=== PATIENT | female | born 1990 | race Caucasian/White ===

== ENCOUNTER → 2021-02-20 08:08 | Outpatient (CLI) | payer BC, SELFPAY ==
[2021-02-16 07:28] VITALS: BMI 29.0
[2021-02-20 10:34] LABS: Anion Gap 6 (5-15); BUN 9 mg/dL (7-18); BUN/Creat Ratio 13.5 RATIO (10-20); Calcium,Total 8.5 mg/dL (8.5-10.1); Chloride 106 mmol/L (98-107); Cholesterol 168 mg/dL (200); Creatinine, Serum 0.67 mg/dL (0.55-1.02); EST Glomerular Filtration Rate 110 mL/min (>60); Est Glom Filt Rate - Afr Amer 133 mL/min (>60); Glucose 84 mg/dL (74-106); High Density Lipoprotein 56 mg/dL; Potassium 3.8 mmol/L (3.5-5.1); Sodium Level 137 mmol/L (136-145); Triglycerides 139 mg/dL; Very Low Density Lipoprotein 28 mg/dL (5-40)
[2021-02-20 10:36] LABS: Vitamin D,25 Hydroxy 28.4 ng/mL
== END ==
PROVIDERS: Visit Provider Family Medicine
DX: Z00.00 Encounter for general adult medical examination without abnormal findings (principal)
CPT/HCPCS: 36415; 80048; 80061; 82306

== ENCOUNTER 2021-04-24 10:04 | Day surgery (SDC) | payer BC, SELFPAY ==
[2021-02-16 07:28] VITALS: BMI 29.0
--- NOTE | 2021-04-20 15:32 | EKG12_ITS ---
Test Reason : PREOP Blood Pressure : / mmHG Vent. Rate : 057 BPM Atrial Rate : 057 BPM P-R Int : 168 ms QRS Dur : 100 ms QT Int : 442 ms P-R-T Axes : 039 039 034 degrees QTc Int : 430 ms Sinus bradycardia Otherwise normal ECG Confirmed by MARIAH REYES, RK ([id number]), content editor RICHI DYER ([id number]) on 04/21/2021 10:33:42 AM Referred By: Howard Yancey Confirmed By:RK LEMUS MD
[2021-04-20 16:46] LABS: Hematocrit 41.3 % (37-47); Hemoglobin 13.3 g/dL (12.0-15.0); Mean Corp Hgb Conc 32.2 g/dL (32-36); Mean Corpuscular Hgb 28.3 pg (27.0-32.0); Mean Corpuscular Volume 87.9 fL (81-99); Mean Platelet Vol. 11.5 fl (6.2-12.0); Platelet Count 286 K/mm3 (150-450); RBC Distribution Width CV 11.5 % (11.6-14.6); RBC Distribution Width SD 37.2 fl (35.1-43.9)
[2021-04-20 17:29] LABS: Anion Gap 7 (5-15); BUN 6 mg/dL (7-18); BUN/Creat Ratio 10.5 RATIO (10-20); Calcium,Total 8.5 mg/dL (8.5-10.1); Chloride 107 mmol/L (98-107); Creatinine, Serum 0.57 mg/dL (0.55-1.02); EST Glomerular Filtration Rate 132 mL/min (>60); Est Glom Filt Rate - Afr Amer 159 mL/min (>60); Glucose 78 mg/dL (74-106); Potassium 3.4 mmol/L (3.5-5.1); Sodium Level 139 mmol/L (136-145)
[2021-04-24] VITALS (8 sets, daily range): BP systolic 107–139; BP diastolic 61–93; PULSE 67–101; RESP 16; TEMP 36.2–37.2; O2SAT 95–100; BMI 31.6
[2021-04-24 10:33] LABS: Internal QC Validated? YES +Cl - CLEAR BKGD; Pregnancy, Urine Negative Negative
[2021-04-24] MEDS: Lactated Ringers 1,000 ML 100 ML IV (10:50)
[2021-04-24] MEDS: Bupivacaine Mpf 0.5% 30 ML VIAL (11:29)
--- NOTE | 2021-04-24 11:49 | PCM.HP.BLA ---
History and Physical Date of Admission: 04/24/21 Intake Visit Reasons: UPDATE H & P. SURGERY IN APR. Chief Complaint: update H&P for hemorrhoidectomy 04/24 [employer] Equipment Tender Required: No Is patient in pain?: No Allergies poison zulema extract Allergy (Mild, Verified 04/20/21 15:02) Rash CHEAP METALS Allergy (Uncoded 04/17/21 13:40) Rash Medications cholecalciferol (vitamin D3) 25 mcg (1,000 unit) capsule 25 mcg PO DAILY 02/16/21 [History Confirmed 04/20/21] fexofenadine 180 mg tablet 180 mg PO DAILY 02/16/21 [History Confirmed 04/20/21] norgestimate-ethinyl estradiol [Sprintec (28)] 1 tab PO DAILY 04/17/21 [History Confirmed 04/20/21] Is last menstrual period known: No Post menopausal: Yes Patient : No PFSH Medical History Alcohol use Former smoker Hemorrhoids History of episiotomy Migraine headache Severe headache Wears contact lenses Wears glasses Surgical History Hx of colonoscopy Family History Father Heart disease Kidney disease Cancer skin Social History Smoking Status: Former smoker alcohol intake: current alcohol intake frequency: a few times a month HPI HPI HPI: CLARISA ANDRADE, is a 31 F who presents to the office today for an update history and physical. Patient is scheduled for an elective hemorrhoidectomy. She denies recent illnesses or hospitalizations. She denies previous complications/side effects from anesthesia. Patient's previous history per Dr. Yancey: CLARISA ANDRADE, is a 30 F who presents to the office today for surgical consultation regarding bleeding internal/external hemorrhoids. The patient's new primary care physician will be Dr. Jeff Hua. She is a 30-year-old female. She complains of a prolonged history of anal pain bleeding and protruding tissue. I assisted her on January 04, 2014 with a combined upper and lower endoscopy. Lower endoscopy demonstrated significant internal hemorrhoids at that time. Then upper endoscopy was not very remarkable. She is gone on all this time with persistent pain bleeding clots. She increased fiber in her diet. She occasion will take a fiber supplement. She is not on any anticoagulants. Because of the progressive discomfort she presents now for definitive treatment. She states that her father had hemorrhoidal disease. ROS General General: Yes weight change and fatigue; No appetite, colon cancer, breast cancer or weakness HEENT HEENT: No difficulty swallowing, eye injury, eye surgery, swollen glands or hoarseness Endo Endocrine: No thyroid disease, diabetes mellitus, thyroid cancer, Hair loss, heat intolerance or cold intolerance Skin Skin: No rash or changing moles Breast Breast: No left breast lump, right breast lump, nipple discharge, breast pain, abnormal mammogram, abnormal US or breast enlargement Musc Musculoskeletal: No back problems, arthritis, rheumatoid arthritis, gout or joint pain Cardio Cardiovascular: No murmur, pacemaker, heart disease, atrial fibrillation, high blood pressure, heart attack, heart stent, palpitations, shortness of breat with exertion or chest pain Psych Psychiatric: Yes anxiety; No depression or hearing voices Resp Respiratory: No shortness of breath, No sleep apnea, No cough, No COPD, No asthma, No emphysema and No wheezing Gastro Gastrointestinal: No abdominal pain, No nausea or vomiting, No diarrhea, No constipation, No blood in stool, No acid reflux, Yes hemorrhoids, No ulcers, No gallbladder problem and No black,tarry stools Archie Hematologic: No blood thinners, No blood disorders, No bleeding, No anemia and No blood clots Neuro Neurologic: No system reviewed and no additional complaints, except as documented, No as per HPI, No abnormal gait, No abnormal hearing, No abnormal movements, No abnormal speech, No behavioral changes, No burning sensations, No confusion, No convulsions, No disequilibrium, No dizziness, No localized weakness, No frequent falls, No headache(s), No lack of coordination, No loss of vision, No memory loss, No numbness, No other visual disturbances, No radicular pain, No restless legs, No sensory deficit, No syncope, No tingling, No tremor(s), No weakness and No other Exam Const General: cooperative, healthy appearing, comfortable and no acute distress [facility] Head: normal to inspection Eyes General: appearance normal, both eyes and all related structures Neck Neck: normal visual inspection Neck mass: No Resp Effort & Inspection: normal respiratory effort Auscultation: clear to auscultation bilaterally Cardio Rate: regular rate Rhythm: regular rhythm GI Inspection: normal to inspection Palpation: soft Auscultation: normal bowel sounds Rectal Exam: hemorrhoids Skin General: no rashes or lesions noted Neuro General: no focal motor deficits and CN's II-XI intact bilaterally Extrem General: normal to inspection Psych Appearance: grossly normal Affect: normal affect COVID (Procedure Consent) Procedure Criteria Procedure Criteria: Yes Elective The surgeon/proceduralist and patient have discussed in detail the risk of exposure to and/or potential harm posed by the COVID-19 virus with having a surgery/procedure at this time versus the risk of delaying the surgery/procedure. It is not possible to know either the risk of delaying the surgery or procedure or chance of getting an infection with perfect accuracy, but a joint decision was made between the patient and the surgeon/proceduralist to proceed at this time with the scheduled surgery/procedure as indicated on the consent form. Assessment and Plan Assessment and Plan (1) Hemorrhoids: Status: Acute Qualifiers: Hemorrhoid type: fourth degree Qualified Code(s): K64.3 - Fourth degree hemorrhoids Plan - Gretchen MORALES PAHeenaC: Dr. Yancey will plan to perform a hemorrhoidectomy. Procedure details, risks and benefits have been reviewed. Patient has had the opportunity to ask and have questions answered. Patient verbally understands and agrees with the plan. Coding Level of Care Code No Charge Diagnoses Hemorrhoids K64.3 Hemorrhoid type: fourth degree I have re-examined the patient. There are no clinical changes since date of exam. Howard Yancey M.D., F.A.C.S.
--- NOTE | 2021-04-24 12:00 | HEM_PTH ---
PATIENT: CLARISA ANDRADE LOC: [facility] – [place] U#:[id number] AGE/SX: 31/F ROOM: RE04/24/[address]: Dr. Howard Yancey MD : 1990 BED: DIS: 04/24/2021 SPEC #: [id number] RECD: 04/24/21 15:40 STATUS: ELVIRA REID #: [id number] NOHEMY: 04/24/21 12:[address]: Howard Yancey DEPT: SURGICAL PATHOLOGY RECD BY: Maren Woodward ENTERED: 04/25/21 16:33 SP TYPE: HEMORRHOID OTHR DR: No Primary Care Phys Tissues: HEMORRHOIDS Procedures: Surgery Specimen Level III HEADER OPERATION: Hemorrhoidectomy PRE-OP DIAGNOSIS: Hemorrhoids TISSUE SUBMITTED: Hemorrhoid tissue MICROSCOPIC DIAGNOSIS Hemorrhoid tissue, hemorrhoidectomy: Submucosal vascular ectasia and thrombosis consistent with hemorrhoids. AM:kath 04/28/2021 MICROSCOPIC DESCRIPTION Slides are reviewed. GROSS DESCRIPTION Received in fixative is one container labeled with the patient's name and designated hemorrhoid tissue. The specimen consists of five irregular fragments of arango mucosa with underlying submucosa that in aggregate measure 5 x 4.5 x 1.5 cm. Wax Ball Knock Out Worker sections are submitted in one cassette. / AM:kath 04/27/21 TC:5 [facility]: [id number]
[2021-04-24] MEDS: Cefotetan 2 GM in 0.9% NS 100 ML IV (12:09)
--- NOTE | 2021-04-24 12:14 | DCINST_ITS ---
Discharge Instructions Procedure Rectal Surgery Diet Discharge Diet: No restrictions Activity Discharge Activity: Return to Normal Activity and May Not Drive (while you are taking narcotic pain medications. Do not drive, work with heavy equipment or s ign legal documents for 24 hours after your surgery.) Additional Activity Instructions:: Do not drive or work with heavy equipment or sign legal documents for 24 hours. Be aware that pain medications may cause nausea. You should typically eat light foods as you take your pain medications. Pain medications may also cause constipation, if you have difficulty with this please discuss with your doctor. Follow Up Care Please Follow Up With: Howard Yancey MD Test Results: You may apply dibucaine ointment as needed for comfort. Please take a daily fiber supplement Metamucil, Citrucel, FiberCon, or generic. Large heaping tablespoon in with water or fluid daily. Mineral oil 30 cc or 1 ounce in fluid or mixed with foods daily for 1 week You may utilize sitz baths in warm soapy water as needed for comfort or for hygiene after moving her bowels. You may use showers for cleansing as well. Please schedule office follow-up for approximately 3 weeks. I encourage [id number] pain medicine as needed for discomfort. Please take your antibiotic medication as prescribed for 5 days You may use [id number] Preparation H or similar ointment every 4 hours as needed for comfort Discharge Plan Admission Primary Reason for Your Visit: Bleeding internal hemorrhoids Attending Provider: Howard Yancey Primary Care Provider: Care Physician,No Primary Discharge Orders/Prescriptions Prescriptions: New metronidazole 500 mg tablet 500 mg PO Q8H Qty: 15 RF: 0 hydrocodone-acetaminophen 5-325 mg tablet 1 tab PO Q6H PRN (Reason: pain) 5 Days Qty: 20 RF: 0 Continued fexofenadine [Catrachita Allergy] 180 mg tablet 180 mg PO DAILY RF: 0 cholecalciferol (vitamin D3) 25 mcg (1,000 unit) capsule 25 mcg PO DAILY RF: 0 norgestimate-ethinyl estradiol [Sprintec (28)] 0.25-35 mg-mcg Tablet 1 tab PO DAILY RF: 0 Referrals / Follow Up: Care Physician,No Primary [Primary Care Provider] -
[2021-04-24] MEDS: Lubricating Jelly 60 GM Tube 30 GM TOPICAL (12:39)
[2021-04-24] MEDS: BUPIVACAINE LIPOSOME/PF 20 ML VIAL OPERA.SITE (13:32)
[2021-04-24] MEDS: Dibucaine 30 GM Tube 1 APPLIC (13:32)
--- NOTE | 2021-04-24 13:40 | PCM.OPRPT ---
Problems Associated Problem List Diagnoses (1) Hemorrhoids: Report of Operation Date of Procedure: 04/24/21 Pre-Operative Diagnosis: Grade 4 bleeding internal and external hemorrhoids Post-Operative Diagnosis: Same Surgery/Procedure Performed:: Extensive hemorrhoidectomy Description of Surgical Findings:: Timeout and informed consent was obtained. 31-year-old female was taken to the operating place upon the table underwent general endotracheal intubation anesthesia. Cefotetan 2 g given intravenously. She was then rolled prone with care for shoulder and pelvic padding. She was placed in a jackknife position. Skin-Prep and then tape straps were placed to expose the perianal space. Exuberant prolapsing internal hemorrhoids noted particularly right anterior. She underwent Betadine prepping. Then I placed a speculum in there is significant exuberant prolapse having hemorrhoids right anterior lateral and additional right posterior lateral and very significant left mid lateral to the left mid lateral posterior. The right anterior area was addressed first and apical suture of 0 Vicryl placed and tied then 2-0 chromic was placed and harmonic scalpel was used to excise this exuberant amount of tissue. The mucosa was approximated with a running locking 2-0 chromic. The right posterior lateral was next resected with the same technique and then finally the left lateral to the lateral posterior was excised with the same technique. This was an exuberant amount of tissue that extended over the lateral to posterior circumference. Had to work underneath the mucosa to allow for complete excision. I placed the apical 0 Vicryl suture and then after approximately mucosa with the 2-0 chromic for approximately a centimeter and a half I then placed an additional 0 Vicryl to assist with definitive hemostasis. The mucosa was approximated. The sphincter mechanism was protected throughout. Vaseline gauze with dibucaine ointment was applied. It is of note that at the initiation of the procedure at the completion procedure 20 cc of Exparel mixed with 30 cc 0.5% Marcaine was used as a local anesthetic. Harmonic scalpel was used for the dissection. Hemostasis was nicely intact and blood loss was minimal. Specimens multiple hemorrhoids. Drains none. Vaseline gauze in place. Blood loss minimal. Howard Yancey M.D., F.A.C.S. Surgeon: Howard Yancey
[2021-04-24] MEDS: HYDROcodone Bitartrate/Apap 5/325 Tablet PO (15:34)
== END 2021-04-24 16:33 ==
LOC: SDC 10:05 → AC 10:05
PROVIDERS: Anesthesiology; Referring Provider Surgery; Visit Provider Surgery
PROC: (CPT 46260; principal; 2021-04-24 11:45)
DX: K64.3 Fourth degree hemorrhoids (principal); K64.4 Residual hemorrhoidal skin tags; Z87.19 Personal history of other diseases of the digestive system; Z87.891 Personal history of nicotine dependence
CPT/HCPCS: 00902; 46260; 36415; 80048; 81025; 85027; 88304; 93005; J7120; J2405

== ENCOUNTER → 2022-12-07 | Outpatient (CLI) | payer SELFPAY ==
--- NOTE | 2022-12-07 09:50 | RAD_ITS ---
STUDY: X-RAY - LUMBOSACRAL SPINE REASON FOR EXAM: Female, 32 years old. Low back pain TECHNIQUE: 5 view(s) of the lumbosacral spine were obtained including oblique and flexion and extension views. Views. COMPARISON: None FINDINGS: Normal lumbar lordosis. There is no substantial scoliosis. Grade 1 anterior listhesis of L5 on S1 with spondylolysis of the pars interarticularis of the L5 vertebrae. No significant change during the flexion and extension maneuver.. Normal vertebral bodies and endplates. Normal disc space heights. Normal bilateral sacral ala, sacroiliac joints, and visualized sacrum. Normal visualized soft tissue structures. RAD/L/S Spine w Bend Min 6 Vw IMPRESSION: Grade 1 anterior listhesis of L5 on S1 due to spondylolysis of the pars interarticularis of the L5 vertebrae. No significant change on the flexion and extension maneuvers. Electronically Signed: Trey Singh MD at 10:51 EDT ,
== END | disposition home or self-care (01) ==
LOC: MTRAD 09:47
PROVIDERS: PCP Family Medicine; Referring Provider Family Medicine; Visit Provider Family Medicine
DX: M54.50 Low back pain, unspecified (principal)
CPT/HCPCS: 72114